=== PATIENT | female | born 1990 | race Caucasian/White ===

== ENCOUNTER → 2020-01-23 12:23 | Outpatient (CLI) | payer OTHER, SELFPAY ==
[2020-01-24 07:36] LABS: HSV 2 IGG AB < 0.91 index (0.00-0.90); HSV1IGG < 0.91 index (0.00-0.90)
[2020-01-24 10:14] LABS: RPR Screen Non Reactive (Non Reactive)
[2020-01-25 13:47] LABS: HSV I/II IgM 1.26 Ratio (0.00-0.90)
[2020-01-25 16:27] LABS: Hepatitis B Surface Antigen NEGATIVE s/c (NEGATIVE)
[2020-01-25 16:44] LABS: HIV 1 & 2 Ab/Ag 4th Gen Combo NEGATIVE (NEGATIVE); Hep C Virus Ab w/Reflex Quant NEGATIVE s/c (NEGATIVE)
== END ==
PROVIDERS: PCP Registered Nurse Diabetes Educator; Referring Provider Registered Nurse Diabetes Educator; Visit Provider Registered Nurse Diabetes Educator
DX: A74.9 Chlamydial infection, unspecified (principal); Z72.51 High risk heterosexual behavior
CPT/HCPCS: 36415; 86592; 86694; 86695; 86696; 86803; 87340; 87389

== ENCOUNTER → 2020-01-27 13:05 | Outpatient (CLI) | payer OTHER, SELFPAY ==
[2020-01-27 14:06] LABS: COVID19 -Nasal RAPID Negative (Negative)
== END ==
PROVIDERS: PCP Registered Nurse Diabetes Educator; Visit Provider Physician Assistant
DX: Z03.818 Encounter for observation for suspected exposure to other biological agents ruled out (principal)
CPT/HCPCS: 87635

== ENCOUNTER → 2020-04-07 12:20 | Outpatient (CLI) | payer OTHER, SELFPAY ==
[2020-04-07 13:24] LABS: Appearance Urine UA CLEAR; Bilirubin Urine UA NEGATIVE (NEGATIVE); Color Urine UA YELLOW; Glucose Urine UA NEGATIVE (Negative); Ketones Urine UA NEGATIVE (NEGATIVE); Leukocyte Esterase Urine UA NEGATIVE (NEGATIVE); Nitrite Urine UA NEGATIVE (Negative); Occult Blood Urine UA TRACE-LYSED (Negative); Protein Urine UA NEGATIVE (Negative); Specific Gravity Urine UA <=1.005 (1.000-1.035); Urobilinogen Urine UA 0.2 E.U./dL (0.2)
[2020-04-07 13:41] LABS: Add Manual Diff / Slide Review NO; Basophils Absolute Auto 0 /uL (0-100); Basophils Percent Auto 0.1 % (0-2); Eosinophils Absolute Auto 0 /uL (0-450); Eosinophils Percent Auto 0.5 % (2-4); Hematocrit 36.9 % (36-46); Hemoglobin 12.9 g/dL (12.0-16.0); Lymphocytes Absolute Auto 1800 /uL (1100-4500); Lymphocytes Percent Auto 19.1 % (25-40); Mean Corpuscular HGB Conc 34.9 % (30-36); Mean Corpuscular Hemoglobin 32.7 PG (26-34); Mean Corpuscular Volume 93.5 fL (80-100); Monocytes Absolute Auto 500 /uL (0-900); Monocytes Percent Auto 5.5 % (3-14); Neutrophils Absolute Auto 7000 /uL (1500-7000); Neutrophils Percent Auto 74.8 % (50-75); Platelet Count 302 X10^3/uL (150-400); Red Blood Cell Count 3.94 X10^6/uL (4.0-5.2); Red Cell Distribution Width 12.2 % (11.6-14.8); White Blood Cell Count 9.3 X10^3/uL (4.5-11.0)
[2020-04-07 16:27] LABS: Urine N gonorrhoeae NOT DETECTED
[2020-04-07 16:30] LABS: Urine Chlamydia NOT DETECTED
[2020-04-07 18:06] LABS: Hepatitis B Surface Antigen NEGATIVE s/c (NEGATIVE)
[2020-04-07 18:19] LABS: HIV 1 & 2 Ab/Ag 4th Gen Combo NEGATIVE (NEGATIVE); Hep C Virus Ab w/Reflex Quant NEGATIVE s/c (NEGATIVE)
[2020-04-08 04:17] LABS: HSV 2 IGG AB < 0.91 index (0.00-0.90); HSV1IGG < 0.91 index (0.00-0.90)
[2020-04-08 06:09] LABS: Varicella IgG Antibody 604 index (Immune >165)
[2020-04-08 08:23] LABS: RPR Screen Non Reactive (Non Reactive)
== END ==
PROVIDERS: PCP Registered Nurse Diabetes Educator; Referring Provider Specialist; Visit Provider Specialist
DX: Z34.01 Encounter for supervision of normal first pregnancy, first trimester (principal); Z86.19 Personal history of other infectious and parasitic diseases
CPT/HCPCS: 36415; 80055; 81003; 86695; 86696; 86787; 86803; 86850; 86900; 86901; 87086; 87389; 87491; 87591

== ENCOUNTER → 2020-05-30 12:36 | Outpatient (CLI) | payer OTHER, SELFPAY ==
[2020-05-30] MEDS: COVID-19 VACC, Ad26(JANSSEN)/PF 0.5 ML IM (12:48)
== END ==
PROVIDERS: PCP Registered Nurse Diabetes Educator; Visit Provider Internal Medicine
DX: Z23 Encounter for immunization (principal)
CPT/HCPCS: 0031A; 91303

== ENCOUNTER → 2020-06-02 15:41 | Outpatient (CLI) | payer OTHER, SELFPAY ==
[2020-06-06 20:09] LABS: Calc Gestational Age Ultrasound (.); Estriol, Free 0.86 ng/mL (.); Inhibin A, MoM 1.67 (.); Maternal Ethnicity Caucasian (.); Maternal Weight 229 lbs (.); Number of Fetuses No (.); OSBR Risk 1 IN 6110 (.); Results Report (.); Test Results *Screen Negative* (.); hCG, MoM 1.38 (.); hCG, Serum 31998 mIU/mL (.)
== END ==
PROVIDERS: PCP Registered Nurse Diabetes Educator; Referring Provider Specialist; Visit Provider Specialist
DX: Z34.02 Encounter for supervision of normal first pregnancy, second trimester (principal); Z3A.17 17 weeks gestation of pregnancy
CPT/HCPCS: 36415; 82105; 82677; 84702; 86336

== ENCOUNTER → 2020-06-23 12:11 | Outpatient (CLI) | payer OTHER, SELFPAY ==
--- NOTE | 2020-06-23 12:12 | DI.US.S_ITS ---
PROCEDURE: US OB >= 14 WEEKS FETUS INDICATIONS: ANATOMY OUTSIDE/PRIOR DATING DATA: Last menstrual period (LMP): 02/03/20. LMP-based estimated date of delivery (BEN): 11/09/20 . First dating scan (date and location): 04/07/[address] Schmidt . Estimated date of delivery (BEN) from first dating scan: 11/10/20, by Dr. Schmidt . TECHNIQUE: Real-time scanning was performed of the fetus, with image documentation and biometric measurements. Endovaginal scanning: Not needed COMPARISON: [facility], , OB >= 14 WEEKS FETUS, 06/02/2020, 15:36. [facility], , OB >= 14 WEEKS FETUS, 06/02/2020, 14:42. FINDINGS: General: A single living intrauterine gestation is present. Presentation: Vertex. Placenta: Placental position is posterior , without previa. Amniotic fluid index: 12.9 cm, normal range is 5-24 cm. heart rate: 149 beats per minute. Maternal cervical canal: 3.3 cm long. Normal lower limit is 2.5 cm. biometrics: Biparietal diameter: 4.8 cm, 20 weeks 4 days Head circumference: 17 these Abdominal circumference: 15.4 cm, 20 weeks 4 days Femur length: 3.4 cm, 20 weeks 4 days Estimated gestational age from initial scan: 20 weeks 0 days. Composite gestational age from present scan: 20 weeks 4 days Estimated weight and percentile: 361 g, 76th percentile Measurement variability for biometric dating: +/- 7 days from 14 weeks to 15 weeks 6 days gestation, +/- 10 days from 16 weeks to 21 weeks 6 days gestation, +/- 2 weeks from 22 weeks to 27 weeks 6 days gestation, +/- 3 weeks for 28 weeks gestation or later. weight reference: 4500 g or EFW >90/95% is considered macrosomia or large for gestational age. EFW <10% is small for gestational age. EFW 5% or less is considered intra-uterine growth restriction. Anatomic survey: Neuro: Ventricles are non-dilated at less than 10 mm. Cisterna magna is normal at 3-11 mm. Cerebellum is normal in size and morphology. Nuchal skin fold: Normal at less than 6 mm between 14-21 weeks gestational age. Face: Nose and lips are not well seen, facial profile are not well seen due to positioning. Spine: No evidence for spina bifida. Heart: 4-chambered heart is present, with normal ventricular outflow tracts. Diaphragm: Diaphragm is intact. Stomach: Left-sided stomach is present. Kidneys: No hydronephrosis. Normal is less than 5 mm in 2nd trimester, less than 7 mm in 3rd trimester. Cord: 3-vessel cord has relatively poorly seen cord insertion. Bladder: Normal in size. Extremities: All 4 extremities identified. IMPRESSION: Appropriate interval growth, no anomaly seen. Midline facial structures and cord insertion poorly seen due to positioning. Depending on the clinical status follow-up limited Ob ultrasound to complete the anatomic survey may be warranted, in approximately 7-10 days. Dictated by: Luis Miguel Hardin M.D. on 06/24/2020 at 11:11 Approved by: Luis Miguel Hardin M.D. on 06/24/2020 at 11:15
== END ==
PROVIDERS: PCP Registered Nurse Diabetes Educator; Referring Provider Specialist; Visit Provider Specialist
DX: Z34.02 Encounter for supervision of normal first pregnancy, second trimester (principal); Z3A.20 20 weeks gestation of pregnancy
CPT/HCPCS: 76811

== ENCOUNTER → 2020-07-26 08:06 | Outpatient (CLI) | payer OTHER, SELFPAY ==
[2020-07-26 09:51] LABS: Hemoglobin 11.8 g/dL (12.0-16.0)
[2020-07-26 10:23] LABS: GTT (PREG) 1 Hour PP 50gm Dose 122 mg/dL (76-139)
== END ==
PROVIDERS: PCP Registered Nurse Diabetes Educator; Referring Provider Specialist; Visit Provider Specialist
DX: Z34.02 Encounter for supervision of normal first pregnancy, second trimester (principal); Z3A.25 25 weeks gestation of pregnancy
CPT/HCPCS: 36415; 82950; 85014; 85018

== ENCOUNTER → 2020-10-13 08:08 | Outpatient (CLI) | payer OTHER, SELFPAY ==
[2020-10-14 13:07] LABS: Strep Grp B PCR NEG for Grp B Strep
== END ==
PROVIDERS: PCP Registered Nurse Diabetes Educator; Visit Provider Specialist
DX: Z34.03 Encounter for supervision of normal first pregnancy, third trimester (principal); Z3A.36 36 weeks gestation of pregnancy
CPT/HCPCS: 87653

== ENCOUNTER 2020-10-19 11:25 | Outpatient (CLI) | payer OTHER, SELFPAY ==
[2020-10-19 12:16] LABS: Add Manual Diff / Slide Review NO; Basophils Absolute Auto 0 /uL (0-100); Basophils Percent Auto 0.1 % (0-2); Eosinophils Absolute Auto 0 /uL (0-450); Eosinophils Percent Auto 0.4 % (2-4); Hematocrit 36.6 % (36-46); Hemoglobin 12.6 g/dL (12.0-16.0); Lymphocytes Absolute Auto 1400 /uL (1100-4500); Lymphocytes Percent Auto 15.8 % (25-40); Mean Corpuscular HGB Conc 34.4 % (30-36); Mean Corpuscular Hemoglobin 32.1 PG (26-34); Mean Corpuscular Volume 93.4 fL (80-100); Monocytes Absolute Auto 400 /uL (0-900); Monocytes Percent Auto 4.6 % (3-14); Neutrophils Absolute Auto 6900 /uL (1500-7000); Neutrophils Percent Auto 79.1 % (50-75); Platelet Count 201 X10^3/uL (150-400); Red Blood Cell Count 3.92 X10^6/uL (4.0-5.2); Red Cell Distribution Width 13.7 % (11.6-14.8); White Blood Cell Count 8.7 X10^3/uL (4.5-11.0)
[2020-10-19 12:30] LABS: Aspartate Aminotransferase 20 IU/L (14-36); BUN Creatinine Ratio 12.8 (6-22); Blood Urea Nitrogen 5 mg/dL (7-17); Estimated Glomerular Filt Rate > 60.0 mL/min (>60); Uric Acid 3.9 mg/dL (2.5-6.2)
--- NOTE | 2020-10-19 13:23 | P.TNLD_ITS ---
Visit Information Visit Information Date of evaluation: 10/19/20 Primary OB Provider: Kassandra Schmidt On-call OB Provider: Emanuel Shafer Reason for Evaluation: Yes non-stress test and Yes other Comments/Additional reasons for admission: Non-severe BP elevation w/o symptoms associated with severe BP elevation and/or severe PEC. Vital Signs Vital Signs: BP: 141/83 P: 106 R: 16 T: 97.6 PFS Medical History Anxiety (~2010) Closed right forearm fracture [employer] lymphoma H/O transfusion of whole blood (~2010) History of cancer (~2010) Surgical History Anesthesia History of removal of Port-a-Cath (~06/2011) Port-A-Cath in place (~01/2011) Family History Father Hypertension Grandmother Ovarian cancer Cancer Family estrangement Grandfather History of heart attack Mother Depression Anxiety Hx laparoscopic cholecystectomy Grandfather Altered cardiac tissue perfusion Heavy smoker Family estrangement Grandmother Hx of heart surgery Brother No problems noted. 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 Objective Labs Result Diagrams: 10/19/20 11:55 10/19/20 11:55 Labs: Laboratory Results - last 24 hr 10/19/20 10/19/20 11:55 11:55 WBC 8.7 RBC 3.92 L Hgb 12.6 Hct 36.6 MCV 93.4 MCH 32.1 MCHC 34.4 RDW 13.7 Plt Count 201 Neut % (Auto) 79.1 H Lymph % (Auto) 15.8 L [place] % (Auto) 4.6 Eos % (Auto) 0.4 L Baso % (Auto) 0.1 Neut # (Auto) 6900 Lymph # (Auto) 1400 [place] # (Auto) 400 Eos # (Auto) 0 Baso # (Auto) 0 BUN 5 L Creatinine 0.39 L Estimated GFR > 60.0 BUN/Creatinine Ratio 12.8 Uric Acid 3.9 AST 20 Evaluation Evaluation Baseline heart rate: 155 Variability: Moderate (11-25) monitor accelerations: Present Monitor Decelerations: Absent Category of Tracing: Reactive Status: Category l Laboratory results: Laboratory Tests 10/19/20 10/19/20 11:55 11:55 WBC 8.7 RBC 3.92 L Hgb 12.6 Hct 36.6 MCV 93.4 MCH 32.1 MCHC 34.4 RDW 13.7 Plt Count 201 Neut % (Auto) 79.1 H Lymph % (Auto) 15.8 L [place] % (Auto) 4.6 Eos % (Auto) 0.4 L Baso % (Auto) 0.1 Neut # (Auto) 6900 Lymph # (Auto) 1400 [place] # (Auto) 400 Eos # (Auto) 0 Baso # (Auto) 0 BUN 5 L Creatinine 0.39 L Estimated GFR > 60.0 BUN/Creatinine Ratio 12.8 Uric Acid 3.9 AST 20 Diagnosis, Plan/Disposition Final Diagnosis (1) Gestational hypertension without significant proteinuria: Status: Acute Plan/Disposition Plan: Patient will discharge to home and she will go to bed rest as much as she recently can with close observation of blood pressures and for symptoms/signs s evere blood pressure elevation and/or preeclampsia. it was recommended to the patient that she take her blood pressures least a couple of times a day and immediately report any readings greater than 150/100. Follow-up is currently scheduled with Dr. Schmidt for 10/27/2020. OB Disposition: home
== END 2020-10-19 13:11 | disposition home or self-care (01) ==
LOC: LABOR 13:04 → OB 10-21 07:06
PROVIDERS: PCP Registered Nurse Diabetes Educator; Referring Provider Obstetrics & Gynecology; Visit Provider Obstetrics & Gynecology
DX: O13.3 Gestational [pregnancy-induced] hypertension without significant proteinuria, third trimester (principal); Z3A.37 37 weeks gestation of pregnancy
CPT/HCPCS: 36415; 59025; 84450; 84550; 85025; G0378; G0379

== ENCOUNTER 2020-11-01 18:29 | Inpatient (IN) | payer OTHER, SELFPAY ==
[2020-11-01] MEDS: miSOPROStoL 25 MCG TABLET VAG ×2 (19:53→23:45)
[2020-11-01 19:54] LABS: Add Manual Diff / Slide Review NO; Basophils Absolute Auto 0 /uL (0-100); Basophils Percent Auto 0.4 % (0-2); Eosinophils Absolute Auto 100 /uL (0-450); Eosinophils Percent Auto 0.9 % (2-4); Hematocrit 35.5 % (36-46); Hemoglobin 12.2 g/dL (12.0-16.0); Lymphocytes Absolute Auto 1900 /uL (1100-4500); Lymphocytes Percent Auto 19.6 % (25-40); Mean Corpuscular HGB Conc 34.5 % (30-36); Mean Corpuscular Hemoglobin 32.2 PG (26-34); Mean Corpuscular Volume 93.4 fL (80-100); Monocytes Absolute Auto 600 /uL (0-900); Monocytes Percent Auto 6.7 % (3-14); Neutrophils Absolute Auto 7000 /uL (1500-7000); Neutrophils Percent Auto 72.4 % (50-75); Platelet Count 221 X10^3/uL (150-400); Red Cell Distribution Width 13.5 % (11.6-14.8); White Blood Cell Count 9.7 X10^3/uL (4.5-11.0)
[2020-11-01 20:57] LABS: COVID19 - ADMIT (NP swab/PCR) Negative (Negative)
[2020-11-01] MEDS: ZOLPIDEM 5 MG TABLET PO (21:13)
[2020-11-01 21:18] VITALS: BP 145/73
[2020-11-01] MEDS: ACETAMINOPHEN 325 MG TABLET 650 MG PO (23:42)
[2020-11-02] MEDS: miSOPROStoL 25 MCG TABLET VAG (03:44)
[2020-11-02] MEDS: ACETAMINOPHEN 325 MG TABLET 650 MG PO ×2 (04:50→14:52)
--- NOTE | 2020-11-02 07:48 | PM.OBHP.1 ---
OB HPI Date/Time Date of admission: 11/01/20 Date Patient Seen: 11/02/20 Time Patient Seen: 07:48 History of Present Condition Chief complaint: observation of labor : 1 Para: 0 Estimated Date of Delivery: 11/07/20 Narrative: Christina De La Cruz is a 29 year old female Indications Indication for induction OB: gestational HTN/pre-eclampsia History of Present care: good care, initiated at week # (9), number of visits (12) and pounds weight gain (28) Dating criteria: LMP confirmed by 1st trimester US Ultrasounds: normal mid trimester US Obstetrical complications: gestational hypertension Medical complications: none Preadmission Labs Blood type: O (+) positive -: Antibody screen: negative, GBS status: negative, HBsAG: negative, HIV: negative and RPR/VDLR: negative -: Chlamydia screen: not detected and Gonorrhea screen: not detected -: Rubella: immune and Varicella: immune HCAB: negative Quad screen: Normal 1 hr GTT: 122 Evaluation Evaluation Baseline heart rate: 130 Variability: Moderate (11-25) monitor accelerations: Present Monitor Decelerations: Absent Uterine Contraction Intensity: Mild Category of Tracing: Reactive Status: Category l Cervical dilation (cm): 1 Cervical effacement (%): 80 station: -1 [facility] Medical History Anxiety (~2010) 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 No leakage of fluid. Good movement. Exam Vital Signs (past 8 hours): Blood pressure 144/73, pulse is 73, temperature 35.9 Narrative Exam Narrative: HEENT exam within normal limits. Lungs are clear to auscultation percussion. Heart is regular rate and rhythm no S3-S4 murmurs. Abdomen is gravid. Fetus is vertex. Extremities with trace edema and nontender. Objective Labs Result Diagrams: 11/01/20 19:20 Labs: Laboratory Results - last 24 hr 11/01/20 11/01/20 11/01/20 19:15 19:20 19:20 WBC 9.7 RBC 3.80 L Hgb 12.2 Hct 35.5 L MCV 93.4 MCH 32.2 MCHC 34.5 RDW 13.5 Plt Count 221 Neut % (Auto) 72.4 Lymph % (Auto) 19.6 L [place] % (Auto) 6.7 Eos % (Auto) 0.9 L Baso % (Auto) 0.4 Neut # (Auto) 7000 Lymph # (Auto) 1900 [place] # (Auto) 600 Eos # (Auto) 100 Baso # (Auto) 0 SARS-CoV-2 (PCR) Negative Blood Type O Positive Antibody Screen Negative Assessment and Plan Assessment and Plan Assessment and Plan narrative: Patient with increasing blood pressures admitted for induction for gestational hypertension. No signs of preeclampsia at this time. Patient received Cytotec and cervix is more favorable. Will plan on Garcia bulb and Pitocin if needed
[2020-11-02] MEDS: fentaNYL 100 MCG/2 ML INJ IV (09:28)
[2020-11-02 09:31] VITALS: BP 133/67; PULSE 76
[2020-11-02] MEDS: LABETALOL 100 MG TABLET PO ×2 (09:31→21:28)
[2020-11-02] MEDS: LACTATED RINGERS 1,000 ML 100 ML IV ×2 (10:38→18:20)
[2020-11-02] MEDS: OXYTOCIN PREMIX 30 UNIT/500 ML PLAST..BAG 200 UNIT IV (10:39)
--- NOTE | 2020-11-02 17:51 | PM.OBPNLAB ---
Date/Time Date Patient Seen: 11/02/20 Time Patient Seen: 17:51 Pain Control Pain control: tolerating well Pelvic Exam Dilation (cm): 5 Effacement (%): 80 station: -1 Amniotic membrane status: Ruptured (AROM for clear to bloody fluid) Contractions Contractions on admission: regular Monitor mode: External Pitocin rate (mU/min): 6 Contraction frequency (min): 3 Contraction duration (min): 1 Contraction pattern: Regular Contraction intensity: Moderate Status status: Category ll Heart Rate Baseline: 70 Monitor Accelerations: Present Monitor Decelerations: Variable Monitor Variability: Moderate Assessment and Plan Assessment: induction ongoing Plan: continuous present management Comments: Monitor closely for heart tachycardia. Patient is afebrile. Her abdomen is soft, not tender
[2020-11-02 21:28] VITALS: BP 140/63; PULSE 77
--- NOTE | 2020-11-02 22:33 | P.PCNOB_ITS ---
Events: Induced HTN and Labor Induction Labor & Delivery Delivery date: 11/02/20 Cervical ripening method: per misoprostal protocol Induction method: other (Garcia bulb) Delivery augmentation: rupture of membranes Delivery monitor: external FHT and external uterine Route of delivery: L&D Laceration Description: Vaginal - 1st Degree Delivery repair: chromic (4-0) Estimated blood loss (mL): 200 Anesthesia Type: Epidural Narrative: Patient arrived on Labor and delivery for Prostin induction for gestational hypertension she received 3 doses of prostaglandins. She had a Garcia bulb placed and then Pitocin started once the Garcia bulb pushed out of her cervix. Patient received an epidural catheter for pain control. heart tones category 1 to category 2. She had an episode of prolonged tachycardia after a bradycardic episode but the tracing improved to category 1. With pushing the fetus had good variability but some repetitive late decelerations. Due to the fact she was making good progress she continued to labor. She delivered spontaneously a viable female over an intact perineum. The was initially placed on maternal chest but then because of baby not breathing well she was transferred to the warmer. The placenta delivered spontaneously, intact, with 3 vessels. Cord pH were 7.119 and 7.288. Base excess -4 for both. There were no cervical, vaginal, or perineal tears except f or a tear along the hymen which was repaired 4-0 chromic suture. Estimated blood loss 200 cc. Baby now is doing well and mother doing well. Baby 1: gender: Female Presentation: vertex Position: Right Occiput Anterior Placenta delivery description: Spontaneous Cord Vessel Description: 3 Vessels and Around Body x1 score (1 min): 7 score (5 min): 7 score (10 min): 9 weight: 7 lb 2 oz Plan for aftercare: Routine care
[2020-11-03] MEDS: IBUPROFEN 600 MG TABLET PO ×3 (02:54→18:52)
[2020-11-03] MEDS: ACETAMINOPHEN 325 MG TABLET 650 MG PO ×2 (05:41→21:13)
[2020-11-03 06:46] LABS: Add Manual Diff / Slide Review NO; Basophils Absolute Auto 0 /uL (0-100); Basophils Percent Auto 0.1 % (0-2); Eosinophils Absolute Auto 100 /uL (0-450); Eosinophils Percent Auto 0.6 % (2-4); Hematocrit 33.6 % (36-46); Hemoglobin 11.4 g/dL (12.0-16.0); Lymphocytes Absolute Auto 1600 /uL (1100-4500); Lymphocytes Percent Auto 9.4 % (25-40); Mean Corpuscular HGB Conc 33.9 % (30-36); Mean Corpuscular Hemoglobin 31.9 PG (26-34); Mean Corpuscular Volume 94.3 fL (80-100); Monocytes Absolute Auto 1000 /uL (0-900); Monocytes Percent Auto 5.9 % (3-14); Neutrophils Absolute Auto 14100 /uL (1500-7000); Platelet Count 194 X10^3/uL (150-400); Red Blood Cell Count 3.57 X10^6/uL (4.0-5.2); Red Cell Distribution Width 14.1 % (11.6-14.8); White Blood Cell Count 16.7 X10^3/uL (4.5-11.0)
[2020-11-03 09:18] VITALS: BP 123/83
[2020-11-03] MEDS: LABETALOL 100 MG TABLET PO (09:18)
[2020-11-03 10:00] VITALS: BP 126/63
--- NOTE | 2020-11-03 17:35 | P.PNOB_ITS ---
Subjective - OB Subjective Patient comments: no complaints [place] baby status: doing well feeding status: exclusively breast feeding Date Patient Seen: 11/03/20 Time Patient Seen: 16:00 Interval history: Patient is status post vaginal delivery after induction for gestational hypertension. She denies headaches, scotomata, epigastric pain. She is ambulatory. She has minimal pain. Just some cramping. She is breast- feeding although the baby is still sleepy. Exam Vital Signs (past 8 hours): - Blood pressure 122/60, pulse 72, temperature 97.8? 11/03/20 10:00 Blood Pressure 126/63 Narrative Exam Narrative: Abdomen is soft, nontender. Uterus is firm, at U, nontender. Mild lochia. Extremities without edema and nontender. Objective Labs Result Diagrams: 11/03/20 06:25 Labs: Laboratory Results - last 24 hr 11/03/20 06:25 WBC 16.7 H D RBC 3.57 L Hgb 11.4 L Hct 33.6 L MCV 94.3 MCH 31.9 MCHC 33.9 RDW 14.1 Plt Count 194 Neut % (Auto) 84.0 H Lymph % (Auto) 9.4 L [place] % (Auto) 5.9 Eos % (Auto) 0.6 L Baso % (Auto) 0.1 Neut # (Auto) 00280 H Lymph # (Auto) 1600 [place] # (Auto) 1000 H Eos # (Auto) 100 Baso # (Auto) 0 Assessment & Plan Plan plan OB: routine care Comments: Likely home tomorrow if doing well. Due to the fact her blood pressures are doing so will stop the labetalol for now and monitor blood pressures. Time Spent With Patient Time: Total time spent is greater than 50% in coordination of care (as documented) at patient's floor/unit and/or counseling patient: Time with patient: less than 15 minutes
--- NOTE | 2020-11-04 07:37 | PM.OBDS.1 ---
Discharge Providers Provider Date of admission: 11/01/20 18:29 Discharge Date: 11/04/20 Primary care physician: RADHIKA Kline Consults: 11/01/20 19:13 Consult to Anesthesiology Urgent Comment: Consulting Provider: Anesthesiologist Reason for consultation: Epidural Has provider been notified: No 11/03/20 22:28 Consult to Dial Painter Routine Comment: Discharge provider: Kassandra Schmidt MD Summary Hospital Course Date Patient Seen: 11/04/20 Time Patient Seen: 07:37 Diagnoses: Gestational hypertension, vaginal delivery Hospital Course: Patient was admitted for induction for gestational hypertension. Patient received the Prostin, Garcia bulb, followed by Pitocin for induction. She received an epidural catheter for pain control. She had a spontaneous vaginal delivery with a first-degree vaginal tear repaired. She is doing well. Breast-feeding is going well. She is urinating and ambulating well. Pain is under control. Peripartum Data Infant Delivery Method: Natural Vaginal Laceration Description: Vaginal - 1st Degree Procedures: Prostin, Garcia bulb, Pitocin induction. Epidural catheter. Spontaneous vaginal delivery. Repair of first-degree tear. complications: none [place] 1: Gender: Female Disposition of : home Discharge Diagnosis (1) Vaginal delivery: Status: Acute (2) Gestational hypertension without significant proteinuria: Status: Acute Status at Discharge Cognitive/behavioral status at discharge: oriented Functional status at discharge: independent ambulation Overall status at discharge: patient is progressing back to baseline Time Spent with Patient Time attestation: Total time spent providing and/or coordinating discharge services: Time spent: Less than 30 minutes Objective Labs Result Diagrams: 11/03/20 06:25 Exam Vital Signs (past 8 hours): Blood pressure 120/65, pulse of 73, temperature 97.1? Narrative Exam Narrative: Patient's abdomen is soft, nontender. Uterus is firm, at U, nontender. Mild lochia. Extremities without edema and nontender Patient's blood type is O positive. She is rubella immune. She received Tdap in the 3rd trimester. Discharge Plan Discharge Plan Patient Disposition: Home Discharge orders & Medications Prescriptions: Continued aknqetub-uli-Wy-FA 1 mg Tablet See Rx Instructions .ROUTE .COMPLEX RF: 0 Discontinued labetalol 100 mg tablet 100 mg PO BID Qty: 60 RF: 1 Follow up/Referrals: Kassandra Schmidt MD [Physician] - 1 Month Toño Garcia ARNP [Primary Care Provider] - Diet/Activity/Treatments Diet: Regular Activity: Nothing in vagina for 4 weeks Skin/Wound/Dressing Care Report to your healthcare provider any signs of infection, such as:: chills, fever Discharge Data Primary Care Provider: Toño Garcia
[2020-11-04] MEDS: IBUPROFEN 600 MG TABLET PO (08:08)
[2020-11-04 09:26] VITALS: BP 131/62; PULSE 71; RESP 16; TEMP 36.1
== END 2020-11-04 10:20 | disposition home or self-care (01) | DRG 807 ==
PROVIDERS: Admitting Provider Specialist; PCP Registered Nurse Diabetes Educator; Referring Provider Specialist; Visit Provider Specialist
DX: O13.4 Gestational [pregnancy-induced] hypertension without significant proteinuria, complicating childbirth (principal); Z37.0 Single live birth; Z3A.39 39 weeks gestation of pregnancy; O70.0 First degree perineal laceration during delivery; Z20.822 Contact with and (suspected) exposure to COVID-19
CPT/HCPCS: 01967; 36415; 59050; 59400; 85025; 86850; 86900; 86901; 87635; C9803; G0379; J2590; J3010

== ENCOUNTER → 2021-04-27 06:41 | Outpatient (CLI) | payer OTHER, SELFPAY ==
--- NOTE | 2021-04-27 06:42 | DI.MRI.S_ITS ---
PROCEDURE: MR HEAD/BRAIN WO/W CON INDICATIONS: [employer]IC[employer] lymphoma. TECHNIQUE: Noncontrast axial T1 spin echo, axial T2 fast spin echo, sagittal and axial FLAIR, coronal T2 fast spin echo, axial gradient echo, axial diffusion and ADC through the brain. After the administration of contrast, axial and coronal 3D VIBE or T1 spin echo with fat saturation through the brain. COMPARISON: None. FINDINGS: Image quality: Excellent. CSF Spaces: Basal cisterns are patent. No extra-axial fluid collections. Ventricles are normal in size and shape. Brain: No midline shift. No intracranial bleeds or masses. No abnormal intracranial enhancement. The brainstem appears normal. Diffusion-weighted images demonstrate no acute ischemic insults. No chronic ischemic insults. Normal intravascular flow voids are present. Skull and face: Calvarial marrow is normal in signal. Orbits appear normal. Sinuses: Sinuses and mastoids appear clear. IMPRESSION: Negative brain MRI. No evidence intracranial neoplasm. Dictated by: Jerry Gonzales M.D. on 04/27/2021 at 9:11 Approved by: Jerry Gonzales M.D. on 04/27/2021 at 9:12
== END ==
PROVIDERS: PCP Registered Nurse Diabetes Educator; Referring Provider Internal Medicine Hematology & Oncology; Visit Provider Internal Medicine Hematology & Oncology
DX: C85.89 Other specified types of non-Hodgkin lymphoma, extranodal and solid organ sites (principal)
CPT/HCPCS: 70553; A9579

== ENCOUNTER → 2022-03-14 10:32 | Outpatient (CLI) | payer OTHER, SELFPAY ==
--- NOTE | 2022-03-14 10:33 | DI.MRI.S_ITS ---
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 After the administration of contrast, axial and coronal and sagittal 3D VIBE or T1 spin echo with fat saturation through the brain. COMPARISON: [facility], MR, MR HEAD/BRAIN WO/W CON, 04/27/2021, 7:11. FINDINGS: Image quality: Excellent. CSF Spaces: Basal cisterns are patent. No extra-axial fluid collections. Ventricles are normal in size and shape. Brain: No midline shift. No intracranial bleeds or masses. No abnormal intracranial enhancement. The brainstem appears normal. Diffusion-weighted images demonstrate no acute ischemic insults. No chronic ischemic insults. Normal intravascular flow voids are present. Skull and face: Calvarial marrow is normal in signal. Orbits appear normal. Sinuses: Sinuses and mastoids appear clear. IMPRESSION: Unremarkable intracranial study, without findings of masses or abnormal enhancement. Dictated by: Sam Zamora M.D. on 03/14/2022 at 10:51 Approved by: Sam Zamora M.D. on 03/14/2022 at 10:52
[2022-03-14 12:12] LABS: Add Manual Diff / Slide Review NO; Basophils Absolute Auto 0 /uL (0-100); Basophils Percent Auto 0.2 % (0-2); Eosinophils Absolute Auto 100 /uL (0-450); Hematocrit 40.6 % (36-46); Hemoglobin 14.2 g/dL (12.0-16.0); Lymphocytes Absolute Auto 2300 /uL (1100-4500); Mean Corpuscular HGB Conc 34.9 % (30-36); Mean Corpuscular Hemoglobin 31.5 PG (26-34); Mean Corpuscular Volume 90.2 fL (80-100); Monocytes Absolute Auto 400 /uL (0-900); Monocytes Percent Auto 4.7 % (3-14); Neutrophils Absolute Auto 4900 /uL (1500-7000); Neutrophils Percent Auto 64.1 % (50-75); Platelet Count 263 X10^3/uL (150-400); Red Cell Distribution Width 12.6 % (11.6-14.8); White Blood Cell Count 7.7 X10^3/uL (4.5-11.0)
[2022-03-14 12:27] LABS: Alanine Aminotransferase 36 IU/L (<35); Albumin 4.6 g/dL (3.5-5.0); Albumin Globulin Ratio 1.4 (1.0-2.8); Alkaline Phosphatase 92 U/L (38-126); Aspartate Aminotransferase 24 IU/L (14-36); Bilirubin Total 0.6 mg/dL (0.2-1.3); Blood Urea Nitrogen 13 mg/dL (7-17); Calcium 9.6 mg/dL (8.4-10.2); Carbon Dioxide 29 mmol/L (22-32); Chloride 102 mmol/L (98-107); Estimated Glomerular Filt Rate > 60 mL/min (>60); Globulin 3.2 g/dL (1.7-4.1); Glucose 89 mg/dL (70-100); HEMOLYSIS < 15 (0-50); Lactate Dehydrogenase 161 U/L (120-246); Potassium 4.2 mmol/L (3.4-5.1); Sodium 142 mmol/L (137-145); Total Protein 7.8 g/dL (6.3-8.2)
[2022-03-17 06:41] LABS: Beta-2-Microglobulin 1.4 mg/L (0.6-2.4)
== END ==
PROVIDERS: PCP Registered Nurse Diabetes Educator; Referring Provider Internal Medicine Hematology & Oncology; Visit Provider Internal Medicine Hematology & Oncology
DX: C85.89 Other specified types of non-Hodgkin lymphoma, extranodal and solid organ sites (principal)
CPT/HCPCS: 36415; 70553; 80053; 82232; 83615; 85025

== ENCOUNTER 2024-07-26 10:30 | Emergency (ER) | payer OTHER, SELFPAY ==
[2024-07-26] VITALS (10 sets, daily range): BP systolic 115–132; BP diastolic 69–81; PULSE 74–105; RESP 18–31; TEMP 36.6–36.9; O2SAT 94–99; BMI 29.5
--- NOTE | 2024-07-26 10:46 | DI.RAD.S_ITS ---
PROCEDURE: XR CHEST 1V INDICATIONS: suspected sepsis TECHNIQUE: One view of the chest was acquired. COMPARISON: None. FINDINGS: Surgical changes and devices: There is a right-sided chest port, with the tip overlying the mid superior vena cava, 5 cm above the cavoatrial junction. Lungs and pleura: Lungs are clear. No pleural effusions or pneumothorax. Mediastinum: Mediastinal contours appear normal. Heart size is normal. Bones and chest wall: No suspicious bony lesions. Overlying soft tissues appear unremarkable. IMPRESSION: No focal infiltrates are seen. Dictated by: Sam Zamora M.D. on 07/26/2024 at 10:43 Approved by: Sam Zamora M.D. on 07/26/2024 at 10:44
--- NOTE | 2024-07-26 11:34 | EKG_ITS ---
[address] [address] Test Date: 2024-07-26 Pat Name: Christina De La Cruz Department: [facility] Room: Gender: Female [place] Hand: CHAVA : 1990 Requested By: Order Number: [id number] Reading MD: Robe Wahl MD Measurements Intervals [place] Rate: 93 P: 36 MS: 152 QRS: 48 QRSD: 82 T: 7 QT: 348 QTc: 432 Interpretive Statements Normal sinus rhythm Nonspecific T wave abnormality Electronically Signed On 07-27-2024 7:27:40 PDT by Robe Wahl MD
[2024-07-26] MEDS: SODIUM CHLORIDE 0.9% 1,000 ML 1000 ML IV ×2 (11:36→13:01)
[2024-07-26 11:41] LABS: Add Manual Diff / Slide Review NO; Basophils Absolute Auto 0 /uL (0-100); Basophils Percent Auto 0.3 % (0-2); Eosinophils Absolute Auto 0 /uL (0-450); Eosinophils Percent Auto 0.1 % (2-4); Hematocrit 34.1 % (36-46); Lymphocytes Absolute Auto 400 /uL (1100-4500); Lymphocytes Percent Auto 9.5 % (25-40); Mean Corpuscular HGB Conc 35.2 % (30-36); Mean Corpuscular Hemoglobin 29.7 PG (26-34); Mean Corpuscular Volume 84.2 fL (80-100); Monocytes Absolute Auto 100 /uL (0-900); Monocytes Percent Auto 1.8 % (3-14); Neutrophils Absolute Auto 3600 /uL (1500-7000); Neutrophils Percent Auto 88.3 % (50-75); Platelet Count 95 X10^3/uL (150-400); Red Blood Cell Count 4.05 X10^6/uL (4.0-5.2); Red Cell Distribution Width 15.1 % (11.6-14.8)
[2024-07-26 11:48] LABS: INR 1.2 (0.9-1.3); Prothrombin Time 13.8 SECONDS (9.4-12.5)
[2024-07-26 11:50] LABS: PTT Partial Thromboplastin Tim 30 SECONDS (25.1-36.5)
[2024-07-26 11:53] LABS: Alanine Aminotransferase 150 IU/L (<35); Albumin 3.2 g/dL (3.5-5.0); Alkaline Phosphatase 90 U/L (38-126); Aspartate Aminotransferase 158 IU/L (14-36); BUN Creatinine Ratio 21.7 (6-22); Bilirubin Total 1.2 mg/dL (0.2-1.3); Blood Urea Nitrogen 13 mg/dL (7-17); Calcium 8.5 mg/dL (8.4-10.2); Carbon Dioxide 26 mmol/L (22-32); Chloride 99 mmol/L (98-107); Estimated Glomerular Filt Rate > 60 mL/min (>60); Globulin 3.1 g/dL (1.7-4.1); Glucose 104 mg/dL (70-99); HEMOLYSIS < 15 (0-50); Lactate (Lactic Acid) 0.9 mmol/L (0.7-2.1); Lipase 120 U/L (23-300); Potassium 3.2 mmol/L (3.4-5.1); Sodium 130 mmol/L (137-145); Total Protein 6.3 g/dL (6.3-8.2)
[2024-07-26 11:57] LABS: Ictotest Urine Negative (Negative)
[2024-07-26 11:58] LABS: Urine Volume 10mL (spun)
[2024-07-26 11:59] LABS: Bacteria Urine None Seen; RBC Urine 1-5/HPF (0-5/HPF); Squamous Epithelial Cell Urine 1-5 /HPF (0-5/HPF); Transitional Epi Cells Urine 1-5/HPF (0-5/HPF); WBC Urine 1-5/HPF (0-5/HPF)
[2024-07-26 12:00] LABS: Calcium Oxalate Crystals Urine Few; Culture Indicated Urine Specimen Cultured
--- NOTE | 2024-07-26 12:04 | ED_ITS ---
HPI - Weakness General Chief complaint: Fever Stated complaint: STG4 melanoma w/brain mets;Hot and chills fever Time Seen by Provider: 07/26/24 10:50 History of Present Illness HPI Narrative: Patient is a 33-year-old female history of metastatic melanoma with brain Mets currently on immunotherapy and dexamethasone presenting today with elevated temperature. She reports that she gets hot flashes often due to all of her medications she has been checking her temperature orally in his very random sometimes it is quite elevated at 102 but she feels okay other times it is 98 it was seems to be fluctuating she generally feels fine. She has no abdominal pain nausea vomiting chest pain shortness of breath sore throat painful urination. Although she does report significantly darken urine She has been being treated in [place] but they recently moved back to the area. She was previously followed by [facility] she has a appointment of transfer of care on August 04. Related Data Home Medications Medication Instructions Recorded Confirmed levonorgestrel 21 mcg/24 hr (up to 1 device intrauterine DAILY 02/07/21 03/22/22 8 years) 52 mg intrauterine device (Mirena) Allergies Allergy/AdvReac Type Severity Reaction Status Date / Time No Known Drug Allergies Allergy Unverified 02/21/22 08:29 Patient History Medical History Anxiety (~2010) Closed right forearm fracture FLAVOR MAKER lymphoma Gestational hypertension without significant proteinuria H/O transfusion of whole blood (~2010) History of cancer (~2010) Vaginal delivery (~11/02/20) Surgical History Anesthesia History of removal of Port-a-Cath (~06/2011) Port-A-Cath in place (~01/2011) Family History Father Hypertension Grandmother Ovarian cancer Cancer Family estrangement Grandfather History of heart attack Mother Depression Anxiety Hx laparoscopic cholecystectomy Grandfather Altered cardiac tissue perfusion Heavy smoker Family estrangement Grandmother Hx of heart surgery Brother No problems noted. Social History marital status: household members: spouse lives independently: Yes pets and animals: Yes (X 2 cats : discussed and aware) education level: college (working on BA in Business Admin and [employer] ) occupational status: employed current occupational exposures/hazards: Yes Previous occupational history: [employer] special ly needs: No Smoking Status: Former smoker second hand exposure: No alcohol intake: former (pre- : social) substance use type: does not use Smoking Status: Former smoker Exam Initial Vital Signs Initial Vital Signs: Vital Signs Temperature 98.4 F 07/26/24 10:37 Pulse Rate 105 H 07/26/24 10:37 Respiratory Rate 18 07/26/24 10:37 Blood Pressure 115/69 07/26/24 10:37 Pulse Oximetry 99 07/26/24 10:37 Oxygen Delivery Method Room Air 07/26/24 10:37 GENERAL: Alert very well-appearing 33-year-old female and in no acute distress. HEENT: Head atraumatic,EOMI, pupils reactive, face symmetric, moist mucous membranes CARDIOVASCULAR: Regular rate and rhythm without murmurs, rubs or gallops. RESPIRATORY: Breath sounds equal bilaterally, no wheezes rales or rhonchi. ABDOMEN: Soft, nontender. Normoactive bowel sounds all 4 quadrants. No guarding or rebound. EXTREMITIES: Normal range of motion, no clubbing or edema. Neurovascularly intact NEUROLOGICAL: Alert and oriented x4.Normal gait and speech. Cranial nerves II through XII grossly intact. Moving all extremities SKIN: Warm, dry, no laceration, no petechiae, no rashes or lesions. Course Orders Ordered: ED Orders 07/26/24 10:46 XR chest 1V Stat EKG-12 Lead Stat RT Consult Eval and Treat NOW 07/26/24 11:30 Blood Culture Stat Complete Blood Count AUTO DIFF Stat Comprehensive Metabolic Panel Stat Ictotest Urine Stat Lactate (Lactic Acid) Stat Lipase Stat PTT Partial Thromboplastin Ez Stat Procalcitonin Stat Prothrombin Time INR Stat Urine Culture Stat Urine Microscopic Stat 07/26/24 12:27 Covid-19 + FLU A/B + RSV - PCR Stat Discontinued Medications Heparin Sodium (Porcine) (Heparin 500 Unit/5 Ml Port Flush) 500 unit IV PRN PRN PRN Reason: Flush Last Admin: 07/26/24 15:20 Dose: 500 unit Documented By: MPO Sodium Chloride (Normal Saline 0.9%) 1,000 mls @ 1,000 mls/hr IV BOLUS ONE Stop: 07/26/24 11:45 Last Infusion: 07/26/24 12:41 Dose: Infused Documented By: Admin: 07/26/24 11:36 Dose: 1,000 mls/hr Documented By: JENNY Sodium Chloride (Normal Saline 0.9%) 1,000 mls @ 1,000 mls/hr IV BOLUS ONE Stop: 07/26/24 13:46 Last Infusion: 07/26/24 14:27 Dose: Infused Documented By: Admin: 07/26/24 13:01 Dose: 1,000 mls/hr Documented By: KAUSHIK Ondansetron HCl (Ondansetron 4 Mg/2 Ml Inj) 4 mg IV NOW PRN PRN Reason: Nausea And Vomiting Ondansetron HCl (Ondansetron 4 Mg Odt) 4 mg PO NOW PRN PRN Reason: Nausea And Vomiting Vital Signs Vital signs: Vital Signs - 8 hr 07/26/24 10:37 07/26/24 11:42 07/26/24 11:42 Temperature 98.4 F Pulse Rate 105 H 101 H Respiratory Rate 18 Blood Pressure 115/69 132/81 Pulse Oximetry 99 94 Oxygen Delivery Method Room Air 07/26/24 12:00 07/26/24 12:00 07/26/24 12:30 Temperature Pulse Rate 91 H Respiratory Rate 22 Blood Pressure 128/71 130/76 Pulse Oximetry 97 Oxygen Delivery Method 07/26/24 12:30 07/26/24 13:04 07/26/24 13:30 Temperature Pulse Rate 89 84 80 Respiratory Rate 28 H 31 H 25 H Blood Pressure Pulse Oximetry 99 98 98 Oxygen Delivery Method 07/26/24 14:00 07/26/24 14:30 07/26/24 15:00 Temperature Pulse Rate 76 74 80 Respiratory Rate 26 H 26 H 27 H Blood Pressure Pulse Oximetry 97 98 97 Oxygen Delivery Method 07/26/24 15:21 Temperature 98 F Pulse Rate 79 Respiratory Rate 20 Blood Pressure 126/78 Pulse Oximetry 98 Oxygen Delivery Method Room Air MDM - Weakness Lab Data 07/26/24 11:30 07/26/24 11:30 Labs: Lab Results 07/26/24 07/26/24 Range/Units 11:30 12:27 WBC 4.0 L (4.5-11.0) X10^3/uL RBC 4.05 (4.0-5.2) X10^6/uL Hgb 12.0 (12.0-16.0) g/dL Hct 34.1 L (36-46) % MCV 84.2 (80-100) fL MCH 29.7 (26-34) PG MCHC 35.2 (30-36) % RDW 15.1 H (11.6-14.8) % Plt Count 95 L (150-400) X10^3/uL Neut % (Auto) 88.3 H (50-75) % Lymph % (Auto) 9.5 L (25-40) % Larue % (Auto) 1.8 L (3-14) % Eos % (Auto) 0.1 L (2-4) % Baso % (Auto) 0.3 (0-2) % Neut # (Auto) 3600 (9991-3050) /uL Lymph # (Auto) 400 L (1627-7691) /uL Larue # (Auto) 100 (0-900) /uL Eos # (Auto) 0 (0-450) /uL Baso # (Auto) 0 (0-100) /uL PT 13.8 H (9.4-12.5) SECONDS INR 1.2 (0.9-1.3) APTT 30 (25.1-36.5) SECONDS Sodium 130 L (137-145) mmol/L Potassium 3.2 L (3.4-5.1) mmol/L Chloride 99 (98-107) mmol/L Carbon Dioxide 26 (22-32) mmol/L BUN 13 (7-17) mg/dL Creatinine 0.60 (0.52-1.04) mg/dL Estimated GFR > 60 (>60) mL/min BUN/Creatinine Ratio 21.7 (6-22) Glucose 104 H (70-99) mg/dL Lactate 0.9 (0.7-2.1) mmol/L Calcium 8.5 (8.4-10.2) mg/dL Total Bilirubin 1.2 (0.2-1.3) mg/dL AST 158 H (14-36) IU/L ALT 150 H (<35) IU/L Alkaline Phosphatase 90 (38-126) U/L Total Protein 6.3 (6.3-8.2) g/dL Albumin 3.2 L (3.5-5.0) g/dL Globulin 3.1 (1.7-4.1) g/dL Albumin/Globulin Ratio 1.0 (1.0-2.8) Lipase 120 (23-300) U/L Procalcitonin 0.922 H (<0.5) ng/mL Ur Bilirubin Confirm Negative (Negative) Urine RBC 1-5/hpf (0-5/HPF) Urine WBC 1-5/hpf (0-5/HPF) Ur Squamous Epith Cells 1-5 /hpf (0-5/HPF) Ur Transition Epith Cell 1-5/hpf (0-5/HPF) Calcium Oxalate Crystal Few H Urine Bacteria None seen (None) Ur Culture Indicated? Specimen cultured Vol Urine Centrifuged 10ml (spun) SARS-CoV-2 (PCR) Negative (Negative) Influenza A (RT-PCR) Flu a negative (NEGATIVE) Influenza B (RT-PCR) Flu b negative (NEGATIVE) RSV (PCR) Negative (Negative) Point of Care Testing Test Results Negative Urine Dip Bedside Urine Glucose Negative Bedside Urine Bilirubin + 1 Bedside Urine Ketone +/- 5 Urine Specific [place] 1.015 Bedside Urine Occult Blood + Bedside Urine pH 6.0 Bedside Urine Protein + 30 Bedside Urine Urobilinogen +/- 1mg Bedside Urine Nitrite - Negative Bedside Urine Leukocytes +/- 15 Esterase Imaging Data Chest x-ray: Radiologist Impression: PROCEDURE: XR CHEST 1V INDICATIONS: suspected sepsis TECHNIQUE: One view of the chest was acquired. COMPARISON: None. FINDINGS: Surgical changes and devices: There is a right-sided chest port, with the tip overlying the mid superior vena cava, 5 cm above the cavoatrial junction. Lungs and pleura: Lungs are clear. No pleural effusions or pneumothorax. Mediastinum: Mediastinal contours appear normal. Heart size is normal. Bones and chest wall: No suspicious bony lesions. Overlying soft tissues appear unremarkable. IMPRESSION: No focal infiltrates are seen. Dictated by: Sam Zamora M.D. on 07/26/2024 at 10:43 ECG Data Attestation: I personally reviewed and interpreted this ECG as follows: Prior ECG tracings: not available for review Interpretation: Sinus rhythm rate 93 SD interval 152 QRS 82 QTC 332 MDM Narrative Medical decision making narrative: SAADIA CC: Possible fever Complicating co-morbidities: Metastatic melanoma to brain Medical records reviewed: Records from 2021 reviewed Differential considered: Neutropenic fever drug fever, autonomic dysregulation Exam documented above, pertinent findings include: Alert well-appearing 33-year-old pain Lab Test results independently reviewed as above. Pertinent findings: WBC 4.0, hemoglobin 12.0 hematocrit 34.1 platelets 95, neutrophils 3600, no evidence of neutropenia Chemistry panel sodium is 130 potassium 3.2 chloride 99 carbon dioxide 26 BUN 13 creatinine 0.6 glucose 104 Lactate 0.9 Bilirubin 1.2 AST 150 ALT 150 alk-phos 90 Procalcitonin 0.922 Independently reviewed EKG as above Sinus rhythm no ischemia Imaging studies independently reviewed: Chest x-ray no acute cardiopulmonary process Consultations: 1500 Dr. Beauchamp from updated symptoms test results no need for antibiotics at this time having persistent fever then return to ED Treatments: IV fluids Re-evaluations: Patient remains awake alert appears nontoxic Discussion: Patient is a 33-year-old female who presents today with possible fluctuating fevers. She was currently afebrile she has not taken any Tylenol. There is no evidence of infection. She does have slightly elevated liver enzymes but abdominal exam is completely benign and negative. Not even having nausea or vomiting. She was not neutropenic. Mildly thrombocytopenic with platelets of 95. Normal lactate. Procalcitonin is elevated at 0.9 but unclear source, blood cultures pending. Oncology recommends no antibiotics at this time. He appears well no sign of meningitis neurovascularly intact Discharge Plan Departure Patient Disposition: Home Clinical Impression: Melanoma Activity Restrictions/Additional Instructions: *You have been diagnosed with melanoma *What to do: At this time no antibiotics were recommended by Oncology. Okay to take Tylenol if needed if symptoms worsen then return to ED *Continue to take medications as directed *Follow up with your primary care provider in 2-3 days or call [phone] *Return to ER if you should have persistent fever chest pain shortness of breath weakness or any new, worsening or concerning symptoms Prescriptions: No Action Mirena 20 mcg/24 hours (7 yrs) 52 mg intrauterine device 1 device intrauterine DAILY Referrals: Miscellaneous,[facility] [Primary Care Provider] - Stand Alone Forms: Patient Portal/API/Survey
[2024-07-26 12:09] LABS: Procalcitonin 0.922 ng/mL (<0.5)
--- NOTE | 2024-07-26 12:31 | PC.NURSE ---
Pt came to ED today because she has been hvaing hot and cold flashes after starting new medications. Hx of melanoma with mets to brain and just recently moved here. Pt establishing care with Kristopher Boucher. Recent seizure and started taking keppra and decadron and now pt experiencing hot and cold sweats, weakness and fatigue. A&Ox4. Deneis having any fever. VS WNL.
--- NOTE | 2024-07-26 13:08 | PC.NURSE ---
Pt ambulated to bathroom with steady gait.
[2024-07-26 13:13] LABS: COVID-19 CEPHEID 4-PLEX PCR Negative (Negative); Influenza A - CEPHEID Flu A NEGATIVE (NEGATIVE); Influenza B - CEPHEID Flu B NEGATIVE (NEGATIVE); Respiratory Syncytial Virus Negative (Negative)
== END 2024-07-26 15:23 | disposition home or self-care (01) ==
PROVIDERS: Emergency Provider Emergency Medicine
DX: C43.9 Malignant melanoma of skin, unspecified (principal); C79.31 Secondary malignant neoplasm of brain; R50.9 Fever, unspecified
CPT/HCPCS: 0241U; 71045; 80053; 81003; 81015; 81025; 83605; 83690; 84145; 85025; 85610; 85730; 87040; 87086; 93005; 93010; 96360; 96361; 99284; J1642

== ENCOUNTER → 2024-07-30 11:27 | Outpatient (CLI) | payer OTHER, SELFPAY ==
--- NOTE | 2024-07-30 11:29 | DI.MRI.S_ITS ---
PROCEDURE: MR HEAD/BRAIN WO/W CON INDICATIONS: METASTATIC MELANOMA W/BRAIN METS; S/P RADIATION TECHNIQUE: Noncontrast axial T1 spin echo, axial T2 fast spin echo, sagittal and axial FLAIR, coronal T2 fast spin echo, axial gradient echo, axial diffusion and ADC through the brain. After the administration of contrast, axial and coronal and sagittal 3D VIBE or T1 spin echo with fat saturation through the brain. COMPARISON: [facility], MR, MR HEAD/BRAIN WO/W CON, 03/14/2022, 11:10. [facility], MR, MR HEAD/BRAIN WO/W CON, 04/27/2021, 7:11. FINDINGS: Image quality: Excellent. CSF Spaces: Basal cisterns are patent. No extra-axial fluid collections. Ventricles are normal in size and shape. Brain: Approximately 20 intensely enhancing intracranial masses are seen, with significant surrounding edema. The largest on the right is seen within parietal region, measuring 18 x 17 mm in greatest axial dimension, as on series 13 image 108. The largest on the left measures 9 x 9 mm in greatest axial dimension, seen within the lateral aspect of the left temporal lobe. There is a significant mass seen within the posterior haley, just to the left of the midline, as on series 13, image 48, measuring 11 x 11 mm. At least 1 enhancing nodule can be seen within the left cerebellar hemisphere. No midline shift. Diffusion-weighted images demonstrate no acute infarct. No chronic ischemic insults. Normal intravascular flow voids are present. Skull and face: Calvarial marrow is normal in signal. Orbits appear normal. Sinuses: Sinuses and mastoids appear clear. IMPRESSION: Approximately 20 intensely enhancing masses with surrounding edema can be seen. The largest is seen within the right parietal region measuring up to 18 mm. A significant 11 mm metastasis can be seen within the posterior haley. Dictated by: Sam Zamora M.D. on 07/30/2024 at 16:52 Approved by: Sam Zamora M.D. on 07/30/2024 at 16:56
== END ==
LOC: MRI 11:28
PROVIDERS: PCP Nurse Practitioner Family; Referring Provider Radiology Radiation Oncology; Visit Provider Radiology Radiation Oncology
DX: C79.31 Secondary malignant neoplasm of brain (principal); N94.89 Other specified conditions associated with female genital organs and menstrual cycle
CPT/HCPCS: 70553; 87210; A9579

== ENCOUNTER → 2024-07-30 14:47 | Outpatient (CLI) | payer OTHER, SELFPAY | LOC: LAB 14:49 | PROVIDERS: PCP Nurse Practitioner Family; Visit Provider Nurse Practitioner Family | DX: N94.89 Other specified conditions associated with female genital organs and menstrual cycle (principal) | CPT/HCPCS: 87210 ==

== ENCOUNTER 2024-08-14 10:32 | Emergency (ER) | payer OTHER, SELFPAY ==
[2024-08-14] VITALS (20 sets, daily range): BP systolic 134–171; BP diastolic 76–115; PULSE 77–121; RESP 17–18; TEMP 37; O2SAT 96–98; BMI 29.5
[2024-08-14] MEDS: IBUPROFEN 400 MG TABLET PO (11:07)
--- NOTE | 2024-08-14 11:12 | DI.CT.S_ITS ---
PROCEDURE: CT HEAD/BRAIN WO CON INDICATIONS: hx of brain mets , vision changes TECHNIQUE: Noncontrast 4.5 mm thick angled axial sections acquired from the foramen magnum to the vertex, with coronal and sagittal reformats. For radiation dose reduction, the following was used: automated exposure control, adjustment of mA and/or kV according to patient size. COMPARISON: [facility], MR, MR HEAD/BRAIN WO/W CON, 07/30/2024, 11:59. FINDINGS: Image quality: Diagnostic. CSF spaces: Basal cisterns are patent. No extra-axial fluid collections. Ventricles are normal in size and shape. Brain: Scattered areas of vasogenic edema within the cerebral hemispheres as well as brain stem. These correspond to areas of known lesion on MRI of 515 25. Skull and face: Metastatic focus in the left parietal calvarium is unchanged. Sinuses: Visualized sinuses and mastoids are clear. IMPRESSION: Stable appearance multifocal vasogenic edema consistent with identified known metastatic disease on 07/30/2024. Stable appearance of left parietal calvarial metastatic disease. Dictated by: Priscilla Esquivel M.D. on 08/14/2024 at 12:03 Approved by: Priscilla Esquivel M.D. on 08/14/2024 at 12:05
--- NOTE | 2024-08-14 12:06 | ED_ITS ---
HPI - Neuro Symptoms/Deficit General Chief Complaint: Neuro Symptoms/Deficit Stated Complaint: HTN, r/o changes in brain-sent from oncology Time Seen by Provider: 08/14/24 12:05 Source: patient Mode of arrival: Family Vehicle History of Present Illness HPI Narrative: 33-year-old female history of metastatic melanoma to the brain here with double vision and blurry vision for 2 days. She has been wearing an eye patch to help reduce the double vision. Additionally she is complaining of tinnitus. 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 Does have a mild bifrontal headache. Denies fever rash or neck stiffness. She does have some light sensitivity. No recent trauma to the brain. No slurred speech or facial droop, unilateral weakness Spoke with Kristopher Boucher BUTTERMILK DRIER OPERATOR. 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 Reported to office visual disturbance (blurry/double) and rining in ears. Had brain MR on 07/30 showing over 20 enhancing intracranial mets with 11 mass near haley. BUTTERMILK DRIER OPERATOR hoping patient could have another brain MR. Oncologist (Caitlin) is [phone]. May advise additional immunotherapy depending on MR imaging. Spoke with Dr. Tucker -Thinks symptoms are related to leptomeningeal disease -Spinal tap would be helpful to gather more data, especially for cytology, protein, glucose -Rec's trial of steroids, and expect would start again on immunotherapy -Rec admit overnight to ensure not developing more neurologic complications -Dexamethasone 4 mg q6 hours -Is available for consult via cell phone over the weekend Spoke with transfer center at [phone]. Will call back. Spoke with Dr. Roth at On Anticoagulants: No Related Data Home Medications Medication Instructions Recorded Confirmed levonorgestrel 21 mcg/24 hr (up to 1 device intrauterine DAILY 02/07/21 08/11/24 8 years) 52 mg intrauterine device (Mirena) levetiracetam 750 mg tablet 750 mg PO BID 07/30/24 08/11/24 (Keppra) memantine 5 mg-10 mg tablets in a 0 ea PO 07/30/24 08/11/24 dose pack cyclopentolate 1 % eye drops drp EYE-BOTH 08/11/24 08/11/24 levothyroxine 75 mcg tablet mcg PO 08/11/24 08/11/24 prednisolone acetate 1 % eye drp EYE-BOTH 08/11/24 08/11/24 drops,suspension Previous Rx's Medication Instructions Recorded estradiol 10 mcg vaginal tablet 10 mcg vaginal 3XW #12 tabs 08/11/24 (Vagifem) dexamethasone 2 mg tablet 2 mg PO QID 7 days #28 tabs 08/14/24 dexamethasone 2 mg tablet 2 mg PO QID 7 days #28 tabs 08/14/24 dexamethasone 2 mg tablet See Rx Instructions .Route 08/14/24 .COMPLEX #25 tabs dexamethasone 2 mg tablet See Rx Instructions .Route 08/14/24 .COMPLEX #49 tabs Allergies Allergy/AdvReac Type Severity Reaction Status Date / Time amoxicillin Allergy Mild Rash Verified 08/14/24 11:01 Review of Systems Review of Systems Narrative: Neg except as stated in HPI Hematologic/Lymphatic On Anticoagulants: No Patient History Medical History Metastatic melanoma Vaginal delivery (~11/02/20) Gestational hypertension without significant proteinuria H/O transfusion of whole blood (~2010) Closed right forearm fracture Anxiety (~2010) History of cancer (~2010) 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 special ly needs: No second hand exposure: No alcohol intake: former (pre- : social) substance use type: does not use Smoking Status: Never smoker Exam Initial Vital Signs Initial Vital Signs: Vital Signs Temperature 98.6 F 08/14/24 10:54 Pulse Rate 121 H 08/14/24 10:54 Respiratory Rate 18 08/14/24 10:54 Blood Pressure 168/115 H 08/14/24 10:54 Pulse Oximetry 98 08/14/24 10:54 Oxygen Delivery Method Room Air 08/14/24 10:54 Constitutional: 33-year-old female resting on the bed, no acute distress, left eye is patched Head: NCAT Cardiovascular: Normal rate Pulmonary: Normal effort Extremities: No LE edema Skin: warm and dry, no diaphoresis Neurological: Alert and oriented x3. Clear speech no facial droop. No hemianopsia. Patient has restriction with extreme gaze to the left with left greater than right eye. Left eye esotropia. There is positive test of skew. With covering of 1 eye the double vision is resolved. Normal finger to nose. Normal strength extremities. No ataxia. Course Orders Ordered: Discontinued Medications Dexamethasone (Dexamethasone 4 Mg/Ml Vial) 4 mg IV NOW ONE Stop: 08/14/24 15:34 Last Admin: 08/14/24 16:05 Dose: 4 mg Documented By: Ibuprofen (Ibuprofen 400 Mg Tablet) 400 mg PO NOW ONE Stop: 08/14/24 11:03 Last Admin: 08/14/24 11:07 Dose: 400 mg Documented By: KAUSHIK Vital Signs Vital signs: Vital Signs - 8 hr 08/14/24 10:54 08/14/24 11:47 08/14/24 11:48 Temperature 98.6 F Pulse Rate 121 H 88 91 H Respiratory Rate 18 Blood Pressure 168/115 H Pulse Oximetry 98 97 97 Oxygen Delivery Method Room Air 08/14/24 11:48 08/14/24 12:00 08/14/24 12:00 Temperature Pulse Rate 87 Respiratory Rate 17 Blood Pressure 160/109 H 159/105 H Pulse Oximetry 98 Oxygen Delivery Method Room Air 08/14/24 13:18 08/14/24 13:19 08/14/24 13:19 Temperature Pulse Rate 89 93 H Respiratory Rate Blood Pressure 152/91 H Pulse Oximetry 96 96 Oxygen Delivery Method 08/14/24 13:30 08/14/24 13:30 08/14/24 14:00 Temperature Pulse Rate 96 H Respiratory Rate Blood Pressure 144/88 H 134/85 Pulse Oximetry 96 Oxygen Delivery Method Room Air 08/14/24 14:00 08/14/24 14:30 08/14/24 14:30 Temperature Pulse Rate 77 78 Respiratory Rate Blood Pressure 145/96 H Pulse Oximetry 98 97 Oxygen Delivery Method 08/14/24 15:00 08/14/24 15:00 08/14/24 15:07 Temperature Pulse Rate 84 Respiratory Rate Blood Pressure 146/102 H 171/101 H Pulse Oximetry 97 Oxygen Delivery Method 08/14/24 15:07 08/14/24 15:08 08/14/24 15:08 Temperature Pulse Rate 88 92 H Respiratory Rate Blood Pressure 166/102 H Pulse Oximetry 98 98 Oxygen Delivery Method 08/14/24 15:30 08/14/24 15:30 08/14/24 16:00 Temperature Pulse Rate 91 H Respiratory Rate Blood Pressure 163/108 H 153/100 H Pulse Oximetry 98 Oxygen Delivery Method Room Air 08/14/24 16:00 08/14/24 16:30 08/14/24 16:30 Temperature Pulse Rate 80 82 Respiratory Rate Blood Pressure 162/107 H Pulse Oximetry 98 98 Oxygen Delivery Method MDM - Neuro Symptoms/Deficit Lab Data 08/14/24 12:35 08/14/24 12:35 Labs: Lab Results 08/14/24 Range/Units 12:35 WBC 5.5 (4.5-11.0) X10^3/uL RBC 4.06 (4.0-5.2) X10^6/uL Hgb 12.4 (12.0-16.0) g/dL Hct 35.3 L (36-46) % MCV 87.0 (80-100) fL MCH 30.6 (26-34) PG MCHC 35.2 (30-36) % RDW 16.9 H (11.6-14.8) % Plt Count 273 (150-400) X10^3/uL Neut % (Auto) 72.1 (50-75) % Lymph % (Auto) 14.6 L (25-40) % Teller % (Auto) 12.1 (3-14) % Eos % (Auto) 0.5 L (2-4) % Baso % (Auto) 0.7 (0-2) % Neut # (Auto) 4000 (1125-7361) /uL Lymph # (Auto) 800 L (0742-5458) /uL Teller # (Auto) 700 (0-900) /uL Eos # (Auto) 0 (0-450) /uL Baso # (Auto) 0 (0-100) /uL Sodium 133 L (137-145) mmol/L Potassium 4.0 (3.4-5.1) mmol/L Chloride 97 L (98-107) mmol/L Carbon Dioxide 30 (22-32) mmol/L BUN 14 (7-17) mg/dL Creatinine 0.73 (0.52-1.04) mg/dL Estimated GFR > 60 (>60) mL/min BUN/Creatinine Ratio 19.2 (6-22) Glucose 97 (70-99) mg/dL Calcium 9.6 (8.4-10.2) mg/dL Total Bilirubin 1.3 (0.2-1.3) mg/dL AST 55 H (14-36) IU/L ALT 68 H (<35) IU/L Alkaline Phosphatase 79 (38-126) U/L Total Protein 7.5 (6.3-8.2) g/dL Albumin 4.2 (3.5-5.0) g/dL Globulin 3.3 (1.7-4.1) g/dL Albumin/Globulin Ratio 1.3 (1.0-2.8) MDM Narrative Medical decision making narrative: 33 F here with blurry vision, diplopia, tinnitus, mild bifrontal headache in setting of known metastatic melanoma to brain. On exam is noted to have CN palsy of left eye with lateral gaze and esotropia. Visual herrera intact. No nuchal rigidity/rash/fever. Spoke with Kristopher Boucher BUTTERMILK DRIER OPERATOR. 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 Reported to office visual disturbance (blurry/double) and rining in ears. Had brain MR on 07/30 showing over 20 enhancing intracranial mets with mass near haley. BUTTERMILK DRIER OPERATOR hoping patient could have another brain MR. Oncologist (Caitlin) is [phone]. May advise additional immunotherapy depending on MR imaging. CT non contrast obtained prior to my assessment of patient. IMPRESSION: Stable appearance multifocal vasogenic edema consistent with identified known metastatic disease on 07/30/2024. Stable appearance of left parietal calvarial metastatic disease. Spoke with Dr. Tucker -Thinks symptoms are related to leptomeningeal disease -Spinal tap would be helpful to gather more data, especially for cytology, protein, glucose -Rec's trial of steroids, and expect would start again on immunotherapy -Rec admit overnight to ensure not developing more neurologic complications -Dexamethasone 4 mg IV q6 hours -Is available for consult via cell phone over the weekend Spoke with hospitalist Dr. Solano who declines admission as thinks patient would be best served with oncology consultation in-house. Recs transfer to . Spoke with transfer center at [phone]. Will call back. Spoke with Dr. Roth at -Expressed my concerns of performing spinal tap in setting of vasogenic edema. Agrees spinal tap is indicated, but not urgently. Will work with Dr. Tucker to have this done early next week -Agrees with steroids - Hospital currently at capacity and patient likely to be boarding in ED for up to several days before transfer would be possible -Therefore, discharge to home with oral steroids vs obs in ED is recommended at this time. Updated patient who prefers discharge with oral steroids. She has a toddler at home and does not wish to sleep in the ED overnight. She did receive first dose of IV dexamethasone here. She knows she can return if symptoms are progressing despite steroids. Discharge Plan Departure Patient Disposition: Home Clinical Impression: Metastatic melanoma, Diplopia Activity Restrictions/Additional Instructions: The MRI of your brain that we did today did redemonstrate multiple metastatic lesions with adjacent vasogenic edema. Radiologist interpreted this is relatively stable. Your oncologist plans to follow up with you early next week to arrange for lumbar puncture and also regarding re-initiation of your chemotherapy. In the meantime please take steroids as prescribed. Please call Dr. Tucker's office on Saturday to arrange for lumbar puncture and schedule follow up appointment You may return to the emergency department at any time if you feel that your symptoms are worsening or new symptoms such as disturbances in speech or weakness, fever, neck stiffness, rash, worsening headache or other symptoms that are concerning to you Prescriptions: New dexamethasone 2 mg tablet 2 mg PO QID 7 Days Qty: 28 0RF dexamethasone 2 mg tablet See Rx Instructions .ROUTE .COMPLEX Qty: 25 0RF Rx Instructions: Starting August 21 2024 -- 2 mg orally twice daily for 7 days, then 1 mg twice daily for 7 days, then 1 mg once daily for 7 days dexamethasone 2 mg tablet 2 mg PO QID 7 Days Qty: 28 0RF dexamethasone 2 mg tablet See Rx Instructions .ROUTE .COMPLEX Qty: 49 0RF Rx Instructions: To start August 21, 2024, 2 mg p.o. b.i.d. x7 days, then 1 mg p.o. b.i.d. x7 days, then 1 mg p.o. q.day x7 days. No Action prednisolone acetate 1 % drops,suspension EYE-BOTH levothyroxine 75 mcg tablet PO cyclopentolate 1 % drops EYE-BOTH estradiol [Vagifem] 10 mcg tablet 10 mcg vaginal 3XW Qty: 12 12RF Mirena 20 mcg/24 hours (7 yrs) 52 mg intrauterine device 1 device intrauterine DAILY memantine 5-10 mg tablets,dose pack 0 ea PO levetiracetam [Keppra] 750 mg tablet 750 mg PO BID Referrals: Bernice Lawrence, KIANNA-BC [Primary Care Provider] - Stand Alone Forms: Patient Portal/API/Survey
--- NOTE | 2024-08-14 12:09 | DI.MRI.S_ITS ---
PROCEDURE: MR HEAD/BRAIN WO/W CON INDICATIONS: metastatic disease TECHNIQUE: Noncontrast axial T1 spin echo, axial T2 fast spin echo, sagittal and axial FLAIR, coronal T2 fast spin echo, axial gradient echo, axial diffusion and ADC through the brain. After the administration of contrast, axial and coronal and sagittal 3D VIBE or T1 spin echo with fat saturation through the brain. COMPARISON: [facility], MR, MR HEAD/BRAIN WO/W CON, 07/30/2024, 11:59. [facility], CT, CT HEAD/BRAIN WO CON, 08/14/2024, 11:25. FINDINGS: Image quality: Excellent. CSF Spaces: Basal cisterns are patent. No extra-axial fluid collections. Ventricles are normal in size and shape. Brain: As identified on the 07/30/2024 MRI brain as well as 08/14/2024 exam, there are multifocal areas of vasogenic edema within the cerebral hemispheres as well as the brainstem. They are grossly unchanged with the exception of slight increased prominence within the haley. The areas of age of the Anuel edema correspond to multiple bilateral enhancing lesions. Overall they are relatively unchanged with the exception of the enhancing lesion within the haley now measuring 1.8 x 1.8 cm compared to 1.0 x 1.2 cm. Skull and face: Left parietal calvarial abnormal signal and enhancement is present as previously identified without change consistent with metastatic disease. Sinuses: Sinuses and mastoids appear clear. IMPRESSION: In comparison to MRI brain 07/30/[address] brain of 08/14/2024, there is stable number of foci of enhancing lesions with vasogenic edema. The edema as well as size of enhancing lesion in the haley has mildly increased as above. Finding remains consistent with metastatic disease. Unchanged appearance of left parietal calvarial metastatic focus. Dictated by: Priscilla Esquivel M.D. on 08/14/2024 at 14:00 Approved by: Priscilla Esquivel M.D. on 08/14/2024 at 14:03
--- NOTE | 2024-08-14 12:27 | PC.NURSE ---
Pt reports blurred vision and higher than normal BP.
--- NOTE | 2024-08-14 12:41 | PC.NURSE ---
Pt to MRI at this time.
[2024-08-14 12:42] LABS: Add Manual Diff / Slide Review NO; Basophils Absolute Auto 0 /uL (0-100); Basophils Percent Auto 0.7 % (0-2); Eosinophils Absolute Auto 0 /uL (0-450); Eosinophils Percent Auto 0.5 % (2-4); Hematocrit 35.3 % (36-46); Hemoglobin 12.4 g/dL (12.0-16.0); Lymphocytes Absolute Auto 800 /uL (1100-4500); Lymphocytes Percent Auto 14.6 % (25-40); Mean Corpuscular HGB Conc 35.2 % (30-36); Mean Corpuscular Hemoglobin 30.6 PG (26-34); Monocytes Absolute Auto 700 /uL (0-900); Monocytes Percent Auto 12.1 % (3-14); Neutrophils Absolute Auto 4000 /uL (1500-7000); Neutrophils Percent Auto 72.1 % (50-75); Platelet Count 273 X10^3/uL (150-400); Red Blood Cell Count 4.06 X10^6/uL (4.0-5.2); Red Cell Distribution Width 16.9 % (11.6-14.8); White Blood Cell Count 5.5 X10^3/uL (4.5-11.0)
[2024-08-14 12:56] LABS: Alanine Aminotransferase 68 IU/L (<35); Albumin 4.2 g/dL (3.5-5.0); Albumin Globulin Ratio 1.3 (1.0-2.8); Alkaline Phosphatase 79 U/L (38-126); Aspartate Aminotransferase 55 IU/L (14-36); BUN Creatinine Ratio 19.2 (6-22); Bilirubin Total 1.3 mg/dL (0.2-1.3); Blood Urea Nitrogen 14 mg/dL (7-17); Calcium 9.6 mg/dL (8.4-10.2); Carbon Dioxide 30 mmol/L (22-32); Chloride 97 mmol/L (98-107); Estimated Glomerular Filt Rate > 60 mL/min (>60); Globulin 3.3 g/dL (1.7-4.1); Glucose 97 mg/dL (70-99); HEMOLYSIS < 15 (0-50); Sodium 133 mmol/L (137-145); Total Protein 7.5 g/dL (6.3-8.2)
--- NOTE | 2024-08-14 16:02 | PM.CALLCOV.1 ---
Call Coverage Note Note Date of Patient Contact: 08/14/24 Narrative of Care Provided: 33 F with metastatic melanoma who presents with new neurological deficits and slight worsening of metastases in her brain with vasogenic edema on MRI. Patient is currently full code and wants to continue full treatment. I recommend transfer to a facility with availability of oncology and possible IR services for requested high risk LP given her intracranial mets and vasogenic edema.
[2024-08-14] MEDS: DEXAMETHASONE 4 MG/ML VIAL IV (16:05)
== END 2024-08-14 19:15 | disposition home or self-care (01) ==
PROVIDERS: Emergency Provider Student in an Organized Health Care Education/Training Program; PCP Nurse Practitioner Family
DX: C79.31 Secondary malignant neoplasm of brain (principal); H53.2 Diplopia
CPT/HCPCS: 70450; 70553; 80053; 85025; 96374; 99284; A9579; J1100